=== PATIENT | female | born 1970 | race Caucasian/White ===

== ENCOUNTER 2017-12-13 15:19 | Emergency (ER) | payer MEDICAID, OTHER ==
[2017-12-13 15:51] VITALS: BP 124/58
--- NOTE | 2017-12-13 16:44 | UC ---
Respiratory Complaint HPI - HPI Summary HPI Summary: 47 yo female with a 2 week hx of cough which has been productive no f/c now with left side CP x 2 days pain with deep breath or cough no SOB no n/v/d no abd pain - History of Current Complaint Chief Complaint: UCGeneralIllness Stated Complaint: TENDERNESS UNDER LEFT BREAST Time Seen by Provider: 12/13/17 16:21 Hx Obtained From: Patient Hx Last Menstrual Period: 3 months ago Onset/Duration: Gradual Onset, Lasting Weeks, Worse Since - x2 days Timing: Constant Severity Initially: Mild Severity Currently: Moderate Pain Intensity: 0 Pain Scale Used: 0-10 Numeric Character: Cough: Productive Aggravating Factors: Deep Breaths Associated Signs And Symptoms: Positive: Pleuritic Chest Pain - Allergies/Home Medications Allergies/Adverse Reactions: Allergies Allergy/AdvReac Type Severity Reaction Status Date / Time No Known Allergies Allergy Verified 12/13/17 15:45 PMH/Surg Hx/FS Hx/Imm Hx Previously Healthy: Yes Respiratory History: Asthma, Bronchitis, Pneumonia Psychological History: Anxiety, Depression - Surgical History Surgical History: Yes Surgery Procedure, Year, and Place: 2 c-sections, tonsilectomy. left breast cyst removal. hemmrhoidectomy - Family History Known Family History: Positive: Hypertension, Other - No FMH of abdominal discomfort or ankle edema - Social History Alcohol Use: None Substance Use Type: None Smoking Status (MU): Never Smoked Tobacco Review of Systems Constitutional: Negative Skin: Negative Eyes: Negative ENT: Negative Respiratory: Cough Cardiovascular: Chest Pain Gastrointestinal: Negative Genitourinary: Negative Motor: Negative Neurovascular: Negative Musculoskeletal: Negative Neurological: Negative Psychological: Negative Is Patient Immunocompromised?: No All Other Systems Reviewed And Are Negative: Yes Physical Exam Triage Information Reviewed: Yes Appearance: Well-Appearing, No Pain Distress, Well-Nourished Vital Signs: Initial Vital Signs Temp 97.7 F 12/13/17 15:45 Pulse 74 12/13/17 15:45 Resp 20 12/13/17 15:45 BP 124/58 12/13/17 15:45 Pulse Ox 99 12/13/17 15:45 Vital Signs Reviewed: Yes Eyes: Positive: Conjunctiva Clear ENT: Positive: Normal ENT inspection, Pharynx normal, Uvula midline. Negative: Nasal congestion, Nasal drainage Neck: Positive: Supple, Nontender, No Lymphadenopathy Respiratory: Positive: No respiratory distress, No accessory muscle use, Wheezing. Negative: Chest non-tender Cardiovascular: Positive: RRR, No Murmur Musculoskeletal: Positive: ROM Intact, No Edema Neurological: Positive: Alert Psychological Exam: Normal Skin Exam: Normal UC Diagnostic Evaluation - Laboratory O2 Sat by Pulse Oximetry: 99 - normal/not hypoxic - Radiology Xray Interpretation: Positive (See Comments) - SMALL RIGHT BASILAR INFILTRATE Radiology Interpretation Completed By: Radiologist Respiratory Course/Dx - Differential Dx/Diagnosis Provider Diagnoses: pneumonia. chest wall pain. tinea corporis Discharge - Discharge Plan Condition: Stable Disposition: HOME Prescriptions: Clotrimazole/Betamethasone* [Lotrisone Cream*] 1 applic TOPICAL QID #14 tube Patient Education Materials: Tinea Corporis (ED), Chest Wall Pain (ED), Bacterial Pneumonia (ED) Referrals: AAMIR Zaragoza [Primary Care Provider] - As Soon As Possible (follow up with your provider as planned) Images Front/Back of Body, Lg ([place]): 1 - tender 2 - large annular patch c/w tinea corporis
--- NOTE | 2017-12-13 16:56 | RAD ---
INDICATION: Cough, left-sided chest pain. COMPARISON: There are no prior studies available for comparison. TECHNIQUE: Dual-energy PA and lateral views of the chest were obtained. FINDINGS: The heart is within normal limits in size. Mediastinal and hilar contours appear within normal limits. The lungs are underinflated. There is a small infiltrate at the right lung base. No pleural effusion or pneumothorax is seen. IMPRESSION: SMALL RIGHT BASILAR INFILTRATE.
== END 2017-12-13 17:13 | disposition home or self-care (01) ==
LOC: UCCORT 15:19
DX: J18.9 Pneumonia, unspecified organism (principal); R07.89 Other chest pain; B35.4 Tinea corporis; J45.909 Unspecified asthma, uncomplicated; F41.9 Anxiety disorder, unspecified; F32.9 Major depressive disorder, single episode, unspecified
CPT/HCPCS: 71046; 99212; G0463

== ENCOUNTER 2019-08-26 16:01 | Emergency (ER) | payer OTHER ==
[2019-08-26 16:22] VITALS: BP 100/68
--- NOTE | 2019-08-26 16:42 | UC ---
Respiratory Complaint HPI - HPI Summary HPI Summary: 49-year-old female with productive cough of yellowish sputum over the past 2 days. She is a nonsmoker. - History of Current Complaint Chief Complaint: UCGeneralIllness Stated Complaint: CHEST CONGESTION,COUGH Time Seen by Provider: 08/26/19 16:41 Hx Obtained From: Patient Hx Last Menstrual Period: 3 months ago ?: No Onset/Duration: Gradual Onset Timing: Intermittent Episodes Severity Initially: Mild Severity Currently: Moderate Pain Intensity: 8 Character: Cough: Productive - Rectum cough of yellowish sputum. Aggravating Factors: Nothing Alleviating Factors: Nothing Associated Signs And Symptoms: Positive: Fever, URI, Nasal Congestion - Allergies/Home Medications Allergies/Adverse Reactions: Allergies Allergy/AdvReac Type Severity Reaction Status Date / Time oxycodone Allergy Nausea And Verified 08/26/19 16:22 Vomiting PMH/Surg Hx/FS Hx/Imm Hx Previously Healthy: Yes - Surgical History Surgical History: Yes Surgery Procedure, Year, and Place: 2 c-sections, tonsilectomy. left breast cyst removal. hemeroidectomy. CHOLECYSTECTOMY - Family History Known Family History: Positive: Hypertension, Other - No FMH of abdominal discomfort or ankle edema - Social History Lives: With Family Alcohol Use: None Substance Use Type: None Smoking Status (MU): Never Smoked Tobacco Review of Systems All Other Systems Reviewed And Are Negative: Yes Constitutional: Positive: Fever, Chills ENT: Positive: Nasal Discharge Respiratory: Positive: Cough - Cough of yellow sputum. Is Patient Immunocompromised?: No Physical Exam Triage Information Reviewed: Yes Appearance: No Pain Distress, Well-Nourished, Ill-Appearing - Mildly ill- appearing., Obese Vital Signs: Initial Vital Signs Temp 99.5 F 08/26/19 16:17 Pulse 93 08/26/19 16:17 Resp 20 08/26/19 16:17 BP 100/68 08/26/19 16:17 Pulse Ox 98 08/26/19 16:17 Vital Signs Reviewed: Yes Eyes: Positive: Conjunctiva Clear ENT: Positive: Pharynx normal, Nasal drainage, TMs normal, Uvula midline Neck: Positive: Supple, Nontender, No Lymphadenopathy Respiratory: Positive: No respiratory distress, No accessory muscle use, Rhonchi - Minimal rhonchi with deep inspiration, Wheezing - Very mild wheezing with forced expiration. Cardiovascular: Positive: RRR, No Murmur, Pulses Normal, Brisk Capillary Refill Musculoskeletal Exam: Normal Neurological Exam: Normal Psychological Exam: Normal Skin Exam: Normal Respiratory Course/Dx - Course Course Of Treatment: Chest x-ray:Indication: Cough, fever. 2 views the chest including dual energy PA views demonstrate no mediastinal shift. Heart is normal size and configuration. Left lower lobe airspace disease consistent with left lower lobe pneumonia is noted. IMPRESSION: Findings suggestive of left lower lobe pneumonia. Duoneb treatment: Patient feels like she is moving more air with less wheezing following the DuoNeb treatment. I'm going to send her home with a prescription for Augmentin 875 mg by mouth twice a day 10 days and she was given an albuterol inhaler with a spacer here at the urgent care Center and taught by the nurse the proper use of the inhaler with a spacer. She has a point with her primary care provider on Wednesday and I encouraged her to keep that appointment for recheck. - Differential Dx/Diagnosis Provider Diagnosis: LLL pneumonia Discharge ED - Sign-Out/Discharge Documenting (check all that apply): Patient Departure All imaging exams completed and their final reports reviewed: Yes - Discharge Plan Condition: Fair Disposition: HOME Prescriptions: Amoxicillin/Clavulanate TAB* [Augmentin TAB 875*] 875 mg PO BID 10 Days #20 tab Patient Education Materials: Community Acquired Pneumonia (DC) Referrals: Mansi Soriano MD [Primary Care Provider] - Additional Instructions: Increase fluids, use your albuterol inhaler 2 puffs every 4 hours while awake with the spacer. Take the Augmentin with food. Follow-up with your primary care provider as previously scheduled this coming week. - Billing Disposition and Condition Condition: FAIR Disposition: Home
[2019-08-26] MEDS ORDERED: Albuterol/Ipratropium NEB.SOL* Albuterol 2.5 MG/Ipratropium 0.5 MG 3 ML INH ONE (16:45)
[2019-08-26] MEDS ORDERED: Albuterol HFA INHALER* 8 gm MDI INH ONE (17:41)
== END 2019-08-26 17:49 | disposition home or self-care (01) ==
LOC: UCCORT 16:01
DX: J18.1 Lobar pneumonia, unspecified organism (principal); R09.81 Nasal congestion; Z88.5 Allergy status to narcotic agent
CPT/HCPCS: 71046; 99213; A9270-GY; G0463

== ENCOUNTER 2019-10-02 15:14 | Emergency (ER) | payer OTHER ==
[2019-10-02 15:46] VITALS: BP 129/87
--- NOTE | 2019-10-02 16:10 | UC ---
Respiratory Complaint HPI - HPI Summary HPI Summary: 49-year-old female who was diagnosed with pneumonia and she has been on 2 courses of antibiotics. She states that she has some left side pain mostly with coughing and he accepts and movement. She is able to replicate the pain. Her cough is nonproductive. - History of Current Complaint Chief Complaint: UCGeneralIllness Stated Complaint: LEFT SIDED PAIN WHEN COUGHING/BREATHING Time Seen by Provider: 10/02/19 16:01 Hx Obtained From: Patient Hx Last Menstrual Period: irregular ?: No Onset/Duration: Gradual Onset Timing: Intermittent Episodes Severity Initially: Mild Severity Currently: Moderate Pain Intensity: 8 Character: Cough: Nonproductive Aggravating Factors: Other - Patient states the areas more sore with movement and she can replicate the pain with twisting or moving. Alleviating Factors: Other - The pain is a little more alleviated when she is not coughing. Associated Signs And Symptoms: Positive: Negative - Recent pneumonia for which she has been treated with 2 antibiotic courses. - Allergies/Home Medications Allergies/Adverse Reactions: Allergies Allergy/AdvReac Type Severity Reaction Status Date / Time oxycodone Allergy Nausea And Verified 10/02/19 15:38 Vomiting Home Medications: Home Medications NK [No Home Medications Reported] 10/02/19 [History Confirmed 10/02/19] PMH/Surg Hx/FS Hx/Imm Hx Previously Healthy: Yes - Surgical History Surgical History: Yes Surgery Procedure, Year, and Place: 2 c-sections, tonsilectomy. left breast cyst removal. hemeroidectomy. CHOLECYSTECTOMY - Family History Known Family History: Positive: Hypertension, Other - No FMH of abdominal discomfort or ankle edema - Social History Alcohol Use: None Substance Use Type: None Smoking Status (MU): Never Smoked Tobacco Review of Systems All Other Systems Reviewed And Are Negative: Yes Musculoskeletal: Positive: Other: - Patient has palpable pain to the left rib area mid axillary line which she can replicate with movement, with coughing or twisting. She has no shortness of breath. Her cough is improving. Is Patient Immunocompromised?: No Physical Exam Triage Information Reviewed: Yes Appearance: Well-Appearing, No Pain Distress, Well-Nourished Vital Signs: Initial Vital Signs Temp 98.3 F 10/02/19 15:38 Pulse 80 10/02/19 15:38 Resp 16 10/02/19 15:38 BP 129/87 10/02/19 15:38 Pulse Ox 99 10/02/19 15:38 Vital Signs Reviewed: Yes Eyes: Positive: Conjunctiva Clear Neck: Positive: Supple, Nontender, No Lymphadenopathy Respiratory: Positive: Lungs clear, Normal breath sounds, No respiratory distress, Other: - Mild tenderness on palpation to the left mid rib area mid axillary line. No erythema, bruising, deformity or swelling is noted. Patient is able to replicate the pain with movement and with twisting. Cardiovascular: Positive: RRR, No Murmur, Pulses Normal, Brisk Capillary Refill Musculoskeletal Exam: Normal Musculoskeletal: Positive: Other: - See notes above. Neurological Exam: Normal Neurological: Positive: Fatigued Skin Exam: Normal Respiratory Course/Dx - Course Course Of Treatment: Chest x-ray:FINDINGS: There is no definite focal airspace opacification. There is no pleural effusion. The cardiomediastinal silhouette is within normal limits. The upper abdominal contents are normal. Osseous structures are unremarkable. IMPRESSION: No focal airspace opacification identified I believe the patient is experiencing more of a muscle strain from coughing because she can replicate the pain. She is to continue Motrin and applying heat to the area and avoid positions cause pain in definite follow-up with her primary care provider if no improvement in 3 or 4 days. - Differential Dx/Diagnosis Provider Diagnosis: Muscle strain Discharge ED - Sign-Out/Discharge Documenting (check all that apply): Patient Departure All imaging exams completed and their final reports reviewed: Yes - Discharge Plan Condition: Good Disposition: HOME Patient Education Materials: Muscle Strain (DC) Referrals: Mansi Soriano MD [Primary Care Provider] - Additional Instructions: Apply heat to the sore area, continue to take Motrin 600 mg every 8 hours for pain. Avoid movements cause pain. Follow-up with your primary care provider if no improvement in symptoms in approximately 4-5 days. - Billing Disposition and Condition Condition: GOOD Disposition: Home
== END 2019-10-02 16:38 | disposition home or self-care (01) ==
LOC: UCCORT 15:14
DX: S29.011A Strain of muscle and tendon of front wall of thorax, initial encounter (principal); R05 Cough; J18.9 Pneumonia, unspecified organism; R53.83 Other fatigue; Z88.5 Allergy status to narcotic agent; X58.XXXA Exposure to other specified factors, initial encounter; Y92.9 Unspecified place or not applicable
CPT/HCPCS: 71046; 99211; G0463